=== PATIENT | male | born 1970 | race Caucasian/White ===

== ENCOUNTER 2021-04-26 06:35 | Emergency (ER) | payer OTHER ==
[~2021-04-26] VITALS: Ht 172.7 cm; Wt 90.0 kg
--- NOTE | 2021-04-26 06:55 | NUR ---
PT AMBULATORY TO ROOM FROM TRIAGE, CHANGED INTO GOWN, MONITORS IN PLACE. CALL LIGHT WITHIN REACH. FAMILY AT BS. PT C/O LOWER BACK PAIN SINCE YESTERDAY, CAME ON SUDDENLY AFTER GETTING OUT OF THE SHOWER.
[2021-04-26] MEDS ORDERED: KETOROLAC 30 MG/1 ML ONE (07:08)
[2021-04-26] MEDS ORDERED: METHOCARBAMOL 750 MG TABLET ONE (07:08)
--- NOTE | 2021-04-26 07:18 | NUR ---
PT MEDICATED PER EMAR, PT AMBULATORY TO BR WITH UPRIGHT STEADY GAIT
--- NOTE | 2021-04-26 07:25 | NUR ---
URINE SAMPLE COLLECTED & SENT TO LAB. LAB AT FOR BLOOD DRAW
[2021-04-26] MEDS ORDERED: METHOCARBAMOL 750 MG TABLET PO ONE (07:30)
[2021-04-26] MEDS ORDERED: KETOROLAC 30 MG/1 ML IM ONE (07:30)
--- NOTE | 2021-04-26 07:30 | NUR ---
PT TO XRAY
[2021-04-26 07:37] LABS: BASOPHILS % (AUTO) 1 % (0-1); EOSINOPHILS % (AUTO) 1 % (1-7); LYMPHOCYTES % (AUTO) 35 % (22-44); MEAN CORPUSCULAR HEMOGLOBIN 31.2 pg (27.5-34.5); MEAN CORPUSCULAR HGB CONC 34.5 g/dL (33.2-36.2); MEAN PLATELET VOLUME 7.6 fL (7.4-10.4); MONOCYTES % (AUTO) 9 % (2-9); NEUTROPHILS % (AUTO) 54 % (42-75); PLATELET COUNT 256 x10^3/uL (130-400); RED BLOOD COUNT 4.96 x10^6/uL (4.38-5.82)
[2021-04-26 07:47] LABS: ALBUMIN 4.1 g/dL (3.4-5.0); ANION GAP 3 mmol/L (5-15); CHLORIDE 109 mmol/L (98-107); CREATININE 1.03 mg/dL (0.7-1.3)
--- NOTE | 2021-04-26 08:03 | NUR ---
PT BACK FROM IMAGING, CONNECTED TO MONITORS, CALL LIGHT WITHIN REACH. FAMILY AT BS
[2021-04-26 08:18] LABS: MICROSCOPIC NOT IND
[2021-04-26 08:33] VITALS: BP 129/87
== END 2021-04-26 09:18 | disposition home or self-care (01) ==
LOC: ED 09:11
DX: S39.012A Strain of muscle, fascia and tendon of lower back, initial encounter (principal); X58.XXXA Exposure to other specified factors, initial encounter; Y93.89 Activity, other specified; Y92.89 Other specified places as the place of occurrence of the external cause; Y99.8 Other external cause status
CPT/HCPCS: 36415; 72110; 80048; 81003; 82040; 85025; 96372; 99284; J1885